=== PATIENT | male | born 1995 | race Caucasian/White ===

== ENCOUNTER 2021-04-24 20:17 | Emergency (ER) | payer MEDICAID ==
[~2021-04-24] VITALS: Ht 172.7 cm; Wt 93.9 kg
[2021-04-24 20:25] VITALS: BP_SYST 136
--- NOTE | 2021-04-24 20:25 | NUR ---
Patient triaged and placed in waiting room. VSS and patient appears in no acute distress at this time. Accompanied by fam member, awaiting available bed, and MD notified of need for MSE.
--- NOTE | 2021-04-24 21:23 | NUR ---
ER examining patient in the triage room.
[2021-04-24] MEDS ORDERED: IBUP-1969 PO (21:42)
--- NOTE | 2021-04-24 21:51 | NUR ---
Patient given verbal discharge instructions by Dr Quintero and verbalizes understanding. ER MD discussed with patient the results and treatment provided. Patient in stable condition. ID arm band removed. Rx of ibuprofen given. Patient educated on pain management and to follow up with PMD. Pain Scale 5/10. Opportunity for questions provided and answered. Medication side effect fact sheet provided.
[2021-04-24 22:00] VITALS: BP_SYST 128
== END 2021-04-24 20:25 | disposition home or self-care (01) ==
LOC: SED 20:17
DX: K02.9 Dental caries, unspecified (principal); Z79.899 Other long term (current) drug therapy
CPT/HCPCS: 99282